=== PATIENT | female | born 1980 | race Hispanic/Latino ===

== ENCOUNTER 2017-02-24 12:17 | Emergency (ER) | payer OTHER ==
[~2017-02-24] VITALS: Ht 162.6 cm; Wt 118.2 kg
[~2017-02-24 12:17] MED LIST: OXYC1TAB24 PO
[2017-02-24 12:31] VITALS: BP 147/82; PULSE 66; RESP 18; O2SAT 98
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
--- NOTE | 2017-02-24 18:08 | DRSVH ---
PROCEDURE: X-RAY CERVICAL SPINE, 2 OR 3 VIEWS INDICATIONS: pain TECHNIQUE: 3 view(s) of the cervical spine were acquired. COMPARISON: [facility], CR, XR CERVICAL SPINE 2 OR 3VW, 11/10/2015, 13:49. FINDINGS: Bones: No fractures or dislocations to the C7-T1 level. The lateral masses of C1 appear intact on t he odontoid view. No suspicious bony lesions. There is mild reversal of normal cervical curvature. The odontoid tip is suboptimally evaluated. Soft tissues: No prevertebral soft tissue swelling. IMPRESSION: No visualized acute fracture or dislocation. However, if clinical concern and/or pain pe rsist, short interval imaging followup in 7-10 days is recommended, as occult injury cannot be defini tively excluded. Dictated by: Cheri Renner M.D. on 02/24/2017 at 18:06 Approved by: Cheri Renner M.D. on 02/24/2017 at 18:06
[2017-02-24] MEDS ORDERED: CYCL10TA9 PO (18:55)
[2017-02-24 19:10] VITALS: BP 138/78; PULSE 68; RESP 18; O2SAT 98
== END 2017-02-24 19:11 | disposition home or self-care (01) ==
LOC: SED 12:17
DX: S16.1XXA Strain of muscle, fascia and tendon at neck level, initial encounter (principal); X58.XXXA Exposure to other specified factors, initial encounter; Y93.89 Activity, other specified; Y92.9 Unspecified place or not applicable; Y99.8 Other external cause status

== ENCOUNTER 2017-03-06 21:45 | Emergency (ER) | payer OTHER ==
[~2017-03-06] VITALS: Ht 162.6 cm; Wt 118.2 kg
[~2017-03-06 21:45] MED LIST changes: +CYCL10TA9 PO
[2017-03-06 21:53] VITALS: BP 180/84; PULSE 80; RESP 18; O2SAT 100
[2017-03-06 22:21] LABS: BASOPHILS % (AUTO) 0.7 % (0-3); EOSINOPHILS % (AUTO) 2.6 % (0-5); MONOCYTES % (AUTO) 7.3 % (4-12); Mean Corpuscular Hemoglobin 30.5 pg (27.0-35.0); Mean Corpuscular Volume 88.3 fL (81-100); NEUTROPHILS % (AUTO) 59.4 % (40-74); Platelet Count 149 bil/L (150-400)
[2017-03-06 22:47] LABS: Magnesium 2.1 mg/dL (1.6-2.6)
--- NOTE | 2017-03-06 23:22 | ED.REPORT ---
HPI-Abd Pain F Under 40 Date of Service March 06, 2017 ED Provider: Andrés Demarco DO Patient is a 36 year old female with a history of ovarian cysts who presents to the ED complaining of suprapubic pain. Associated symptoms include irregular vaginal bleeding. She denies dysuria, , vaginal discharge or having any new sexual partners. The patient reports that she feels as though she has another ovarian cyst. Nursing Notes Stated Complaint: LOWER ABD PAIN Chief Complaint: Female Abdominal Pain Nursing Notes Reviewed: Yes Allergies: Coded Allergies: No Known Allergies (Unverified Allergy, Unknown, 03/06/17) Scheduled PRN Cyclobenzaprine (Cyclobenzaprine) 10 Mg Tablet 10 MG PO BID PRN PRN For Pain oxyCODONE-Acetaminophen 5-325 mg (oxyCODONE-Acetaminophen 5-325 mg) 1 Each Tablet 1-2 TAB PO Q6H PRN PRN For Pain General Time Seen by MD: 23:22 Chief Complaint Pelvic pain Hx Obtained From: Patient Arrived By: Walk-in Sudden in Onset?: Yes Symptom Duration: Since onset Location: : Pelvis: Suprapubic Associated with: Reports: Vaginal bleeding Recent Healthcare: No recent hospitalization, Recent doctor visit Similar Sx Previous: Yes Past Medical History Past Medical History Left ovarian cyst Fatty liver Past Surgical History Cholecystectomy Tonsillectomy D&C Reports: Tubal ligation Family History Noncontributory Smoking History Never Smoker Social History Alcohol Use: Denies alcohol use Other Social History: Good social support, Local resident Ambulatory Status Independent Review of Systems Respiratory: Denies: Non-productive cough, Shortness of breath GI: Reports: Abdominal pain Female: Reports: Pelvic pain, Vaginal bleeding - abnl, Denies: Dysuria, Vaginal discharge Complete sys rev & neg: except as marked. Physical Exam Initial Vital Signs Vital Signs (First) Date Time Temp Pulse Resp B/P Pulse Ox O2 Delivery O2 Flow Rate FiO2 03/06/17 21:53 36.4 80 18 180/84 100 Room Air Initial VS: Reviewed General/Constitutional: Awake, Alert Respiratory / Chest: Atraumatic, Breath sounds NL, Breath sounds = bilat, No respiratory distress Cardiovascular: Heart rate NL, Regular rhythm, Heart sounds NL Abdomen: Atraumatic, Soft Tenderness/Guarding/Rebound: Positive: Tender suprapubic Back: Atraumatic, Full range of motion Head / Eyes: Atraumatic, Normocephalic, PERRL, EOMI Skin: Atraumatic, Color NL, No rash, Warm, Dry Neurologic: Oriented X3, Speech NL, No motor deficits, No sensory deficits Upper Extremity / MS: Atraumatic, Full range of motion Psychiatric: Affect NL, Mood NL Interpretation & Diagnostics Interpretation & Diagnostics: PELVIC ULTRASOUND: Uterus and endometrium within normal limits. There was bowel gas shadowing and neither of the ovaries were visualized. No gross adnexal mass or cyst. at 0011 Lab Results Interpretation Result Diagram: 03/06/17 2213 03/06/17 2213 Test 03/06/17 22:13 03/06/17 23:20 White Blood Count 6.9th/mm3 (3.8-10.1) Red Blood Count 4.53mil/mm3 (3.90-5.20) Hemoglobin 13.8g/dL (12.0-15.6) Hematocrit 40.0% (35.0-46.0) Mean Corpuscular Volume 88.3fL (81-100) Mean Corpuscular Hemoglobin 30.5pg (27.0-35.0) Mean Corpuscular Hemoglobin Concent 34.5% (32.0-37.0) Red Cell Distribution Width 12.9% (12.3-15.4) Platelet Count 149bil/L (150-400) Neutrophils (%) (Auto) 59.4% (40-74) Lymphocytes (%) (Auto) 29.4% (14-46) Monocytes (%) (Auto) 7.3% (4-12) Eosinophils (%) (Auto) 2.6% (0-5) Basophils (%) (Auto) 0.7% (0-3) Sodium Level 139mEq/L (134-144) Potassium Level 3.8mEq/L (3.5-5.2) Chloride Level 104mEq/L (97-108) Carbon Dioxide Level 23mmol/L (18-29) Blood Urea Nitrogen 11mg/dL (6-20) Creatinine 0.60mg/dL (0.57-1.00) Estimat Glomerular Filtration Rate 164mL/min (>59) Glucose Level 84mg/dL (60-99) Calcium Level 9.1mg/dL (8.5-10.1) Magnesium Level 2.1mg/dL (1.6-2.6) Total Bilirubin 0.5mg/dL (0.0-1.2) Aspartate Amino Transf (AST/SGOT) 57U/L (0-50) Alanine Aminotransferase (ALT/SGPT) 68U/L (0-32) Alkaline Phosphatase 113U/L (25-150) Total Protein 7.1g/dL (6.4-8.4) Albumin 3.9g/dL (3.4-5.0) Lipase 25U/L (13-60) Hold Barrios Top Tube Received (Received) Urine Color Yellow (YELLOW) Urine Appearance Clear (CLEAR,HAZY) Urine pH 5.5 (5.0-8.0) Urine Specific [place] 1.030 (1.003-1.035) Urine Protein Negativemg/dL (NEG,TRACE) Urine Glucose (UA) Negativemg/dL (NEGATIVE) Urine Ketones Negativemg/dL (NEGATIVE) Urine Occult Blood Negative (NEGATIVE) Urine Nitrite Negative (NEGATIVE) Urine Bilirubin Negative (NEGATIVE) Urine Urobilinogen Normalmg/dL (NORMAL) Urine Leukocyte Esterase Negative (NEGATIVE) Urine RBC 0-2/hpf (0-2) Urine WBC 0-5/hpf (0-5) Urine Epithelial Cells Many/hpf (NONE-MOD) Urine Crystals None seen (NONE SEEN) Urine Bacteria Few/hpf (NONE-FEW) Urine Hyaline Casts None/lpf (NONE) Urine Granular Casts None seen (NONE SEEN) Urine Waxy Casts None seen (NONE SEEN) Urine Red Blood Cell Casts None seen (NONE SEEN) Urine White Blood Cell Casts None seen (NONE SEEN) Urine Mucus Present (None Seen) Urine Trichomonas None seen (NONE SEEN) Urine Yeast None (NONE SEEN) Urine Culture Reflexed Not indicated Re-Eval/Medical Decision Med Decision/Clinical Course Med Decision/Clinical Course: WBC was normal, ultrasound showed no evidence of cysts, abdomen is no longer tender. See no reason for a further CT Source of Hx: Old records Re-Evaluation/Progress : Time of Eval: 00:52 Re-Evaluation/Progress Note: Patient's abdomen is no longer tender. Discussed US results and plan for discharge. The patient understands and agrees to the plan for discharge. All questions were addressed. Counseled Regarding: Diagnosis, Lab results, Need for follow-up, When/why to return to ED Discharge & Departure Primary Impression: Pelvic pain Disposition: Home Discharge Condition All VS Reviewed: Yes Condition: Stable Patient Instructions: Pelvic Pain in Women (ED) Additional Instructions: Your ultrasound was normal. They were unable to identify your ovaries. Your urine was sent to infectious diseases to be tested. You should follow up with this and call on Friday for results. You can take 1-2 Percocet every 6 hours for pain. Do not drink alcohol or drive while taking the pain medication. Do not consume Acetaminophen while taking the medication. Follow up with your primary care physician next week. Return to the emergency department if you develop any new or worsening symptoms. Referrals: Deejay Arndt MD (PCP) Roman Attestation Portions of this note were transcribed by Mayra Dumont. I, Dr. Demarco personally performed the history, physical exam and medical decision-making; I reviewed and confirmed the accuracy of the information in the transcribed note. Signed by: Roman Stovall, 03/07/17 and 0040 copies to: Deejay Arndt MD, Todd P DO March 06, 2017 23:22 Rossi Dumont March 06, 2017 23:28
[2017-03-06] MEDS ORDERED: _oxyCODONE/APAP 5-325 mg Tablet PO PRN (23:30)
[2017-03-06] MEDS ORDERED: HYDROmorphone 1 mg/mL Inj IM ONE (23:30)
[2017-03-06 23:53] LABS: APPEARANCE,URINE CLEAR (CLEAR,HAZY); COLOR,URINE YELLOW (YELLOW); OCCULT BLOOD,URINE NEGATIVE (NEGATIVE); PH,URINE 5.5 (5.0-8.0); UROBILINOGEN,URINE NORMAL (NORMAL)
--- NOTE | 2017-03-07 08:36 | DRSVH ---
PROCEDURE: US PELVIC SONOGRAM + TRANSVAGINAL SONOGRAM INDICATIONS: pelvic pain, history of ovarian cysts. TECHNIQUE: Real-time scanning was performed of the pelvic organs, with image documentation. Additional endovagi nal scanning was necessary due to incomplete visualization of the adnexal and endometrial structures by transabdominal scanning. COMPARISON: None. FINDINGS: (orthogonal measurements) Uterus size: 9.70 cm, 4.04 cm Endometrium thickness: 10 mm Right ovary size: Not seen Left ovary size: Not seen Transabdominal scanning: Limited scanning through the kidneys shows no hydronephrosis. No pathologi c free abdominal or pelvic fluid. Endovaginal scanning: Uterus: Uterus is normal in size and appearance. Endometrium is within normal physiologic limits. Ovaries: Within normal physiologic limits. IMPRESSION: No gross adnexal mass or cyst. Otherwise, negative exam. Dictated by: Albert Camarena M.D. on 03/07/2017 at 8:23 Approved by: Albert Camarena M.D. on 03/07/2017 at 8:34
== END 2017-03-07 00:54 | disposition home or self-care (01) ==
LOC: SED 21:45
DX: R10.2 Pelvic and perineal pain (principal); N93.8 Other specified abnormal uterine and vaginal bleeding
CPT/HCPCS: 36415; 76830; 76856; 80053; 81000; 81025; 83690; 83735; 85025; 87491; 87591; 96372; 99285; J1170

== ENCOUNTER 2017-03-08 10:15 | Emergency (ER) | payer OTHER ==
[~2017-03-08] VITALS: Ht 162.6 cm; Wt 118.2 kg
[2017-03-08 10:17] VITALS: BP 151/94; PULSE 68; RESP 15; O2SAT 99
--- NOTE | 2017-03-08 10:23 | ED.REPORT ---
HPI-Abd Pain F Under 40 Date of Service March 08, 2017 ED Provider: Dr. Thomas The patient is a 36 year old female w/ a hx of ovarian cysts who presents to the ED due to lower abdominal pain for several days. She was seen at the ED 2 days ago for similar symptoms. She has not been able to sleep or eat since onset. Associated symptoms include chills, vomiting and vaginal spotting. She denies vaginal bleeding or discharge, fever, nausea, diarrhea, or constipation. Nursing Notes Stated Complaint: ABDOMINAL PAIN Chief Complaint: Female Abdominal Pain Nursing Notes Reviewed: Yes Allergies: Coded Allergies: No Known Allergies (Unverified Allergy, Unknown, 03/06/17) Scheduled PRN Cyclobenzaprine (Cyclobenzaprine) 10 Mg Tablet 10 MG PO BID PRN PRN For Pain oxyCODONE-Acetaminophen 5-325 mg (oxyCODONE-Acetaminophen 5-325 mg) 1 Each Tablet 1-2 TAB PO Q6H PRN PRN For Pain General Time Seen by MD: 10:22 Chief Complaint Abdominal pain Hx Obtained From: Patient Arrived By: Walk-in Sudden in Onset?: Yes Onset Occurred: 2 days ago Symptom Duration: Since onset Progression since Onset: Gradually worsening Location: : Abdomen lower Quality: Painful Radiation: : Does not radiate Severity: Current: Moderate Recent Healthcare: Recent doctor visit Similar Sx Previous: Yes Past Medical History Past Medical History Left ovarian cyst Fatty liver Past Surgical History Cholecystectomy Tonsillectomy D&C Reports: Tubal ligation Family History Noncontributory Smoking History Never Smoker Social History Alcohol Use: Denies alcohol use Other Social History: Good social support, Local resident Ambulatory Status Independent Review of Systems Constitutional: Reports: Chills, Denies: Fever GI: Reports: Abdominal pain, Vomiting, Denies: Constipation, Diarrhea, Nausea Female: Reports: Vaginal bleeding - abnl ("spotting"), Denies: , Vaginal discharge Complete sys rev & neg: except as marked. Physical Exam Initial Vital Signs Vital Signs (First) Date Time Temp Pulse Resp B/P Pulse Ox O2 Delivery O2 Flow Rate FiO2 03/08/17 10:17 36.9 68 15 151/94 99 Room Air Initial VS: Reviewed Head / Eyes: Atraumatic, Normocephalic, PERRL ENT: Mucous membranes moist Extremities: Vascular intact, Neuro intact, No swelling, No tenderness Skin: Warm, Dry General/Constitutional: Awake, Cooperative Respiratory / Chest: Atraumatic, Breath sounds NL, Breath sounds = bilat, No respiratory distress Cardiovascular: Heart rate NL, Regular rhythm, Heart sounds NL, No gallop Tenderness/Guarding/Rebound: Positive: Tender diffuse Back: Atraumatic, Inspection NL, Full range of motion, Painless range of motion Interpretation & Diagnostics Lab Results Interpretation Result Diagram: 03/08/17 1103 03/08/17 1103 Test 03/08/17 11:03 03/08/17 12:20 White Blood Count 5.4th/mm3 (3.8-10.1) Red Blood Count 4.39mil/mm3 (3.90-5.20) Hemoglobin 13.4g/dL (12.0-15.6) Hematocrit 39.3% (35.0-46.0) Mean Corpuscular Volume 89.5fL (81-100) Mean Corpuscular Hemoglobin 30.5pg (27.0-35.0) Mean Corpuscular Hemoglobin Concent 34.1% (32.0-37.0) Red Cell Distribution Width 13.0% (12.3-15.4) Platelet Count 129bil/L (150-400) Neutrophils (%) (Auto) 64.0% (40-74) Lymphocytes (%) (Auto) 25.6% (14-46) Monocytes (%) (Auto) 6.9% (4-12) Eosinophils (%) (Auto) 2.2% (0-5) Basophils (%) (Auto) 0.9% (0-3) Sodium Level 138mEq/L (134-144) Potassium Level 3.9mEq/L (3.5-5.2) Chloride Level 104mEq/L (97-108) Carbon Dioxide Level 22mmol/L (18-29) Blood Urea Nitrogen 10mg/dL (6-20) Creatinine 0.54mg/dL (0.57-1.00) Estimat Glomerular Filtration Rate 185mL/min (>59) Glucose Level 116mg/dL (60-99) Calcium Level 8.7mg/dL (8.5-10.1) Magnesium Level 2.1mg/dL (1.6-2.6) Total Bilirubin 0.9mg/dL (0.0-1.2) Aspartate Amino Transf (AST/SGOT) 186U/L (0-50) Alanine Aminotransferase (ALT/SGPT) 171U/L (0-32) Alkaline Phosphatase 114U/L (25-150) Total Protein 6.3g/dL (6.4-8.4) Albumin 3.7g/dL (3.4-5.0) Lipase 15U/L (13-60) Hold Barrios Top Tube Received (Received) Urine Color Yellow (YELLOW) Urine Appearance Hazy (CLEAR,HAZY) Urine pH 6.0 (5.0-8.0) Urine Specific [place] 1.015 (1.003-1.035) Urine Protein Negativemg/dL (NEG,TRACE) Urine Glucose (UA) Negativemg/dL (NEGATIVE) Urine Ketones Negativemg/dL (NEGATIVE) Urine Occult Blood Negative (NEGATIVE) Urine Nitrite Negative (NEGATIVE) Urine Bilirubin Negative (NEGATIVE) Urine Urobilinogen Normalmg/dL (NORMAL) Urine Leukocyte Esterase Negative (NEGATIVE) Urine RBC 0-2/hpf (0-2) Urine WBC 0-5/hpf (0-5) Urine Epithelial Cells Moderate/hpf (NONE-MOD) Urine Crystals Amorphous phosphates Urine Bacteria Few/hpf (NONE-FEW) Urine Hyaline Casts None/lpf (NONE) Urine Granular Casts None seen (NONE SEEN) Urine Waxy Casts None seen (NONE SEEN) Urine Red Blood Cell Casts None seen (NONE SEEN) Urine White Blood Cell Casts None seen (NONE SEEN) Urine Mucus Present (None Seen) Urine Trichomonas None seen (NONE SEEN) Urine Yeast None (NONE SEEN) Urinalysis Comment None Urine Culture Reflexed Not indicated CT Abd / Pelvis Interpretation IMPRESSION: 1. Appendix is unremarkable. No right lower quadrant inflammatory change. 2. Mild hepatomegaly with steatosis. Dictated by: Cheri Renner M.D. on 03/08/2017 at 12:40 Approved by: Cheri Renner M.D. on 03/08/2017 at 12:42 Study type: Abdominal CT no contrast Interpretation / Wet Read by: Interpret - Radiologist Re-Eval/Medical Decision Med Decision/Clinical Course Med Decision/Clinical Course: 36-year-old female history of morbid obesity, ovarian cyst presenting with right lower quadrant pain times several days. She was seen for similar the day before was discharged home with return precautions. She returns with right lower quadrant pain. She is fairly tender on initial exam. CT abdomen and pelvis no appendicitis. On pelvic she had mild right adnexal tenderness. Pelvic ultrasound was performed which was unable to visualize the appendix due to extensive bowel gas and body habitus. However her abdominal pain resolved. Her labs are stable. Given resolution of pain she is discharged home with return precautions plans to return if any recurrent right lower quadrant pain, fevers, nausea vomiting, any other new or worsening symptoms. Re-Evaluation/Progress : Time of Eval: 12:53 Patient Status: Condition unchanged Re-Evaluation/Progress Note: Pt rechecked. Pain is not improved. Plan for pelvic exam. Counseled Regarding: Diagnosis, Lab results, Need for follow-up, When/why to return to ED Discharge & Departure Primary Impression: Ovarian cyst Laterality: unspecified laterality Qualified Code: N83.209 - Unspecified ovarian cyst, unspecified side Additional Impression: Right lower quadrant pain Disposition: Home Discharge Condition All VS Reviewed: Yes Condition: Stable Additional Instructions: Thank you for entrusting us with your care today. Your CT does not show any signs of appendicitis and your lab work is normal. Take Tylenol and Ibuprofen as needed for pain. Follow up with your primary care physician as needed. Return to the Emergency Department for any new or worsening symptoms including fever, vomiting, increased pain, and abnormal vaginal bleeding. I hope you feel better soon, enjoy the sunshine! Referrals: Deejay Arndt MD (PCP) Scribe Attestation Portion of this note were transcribed by Linda Guillen. I, Dr. Thomas, personally performed the history, physical exam, and medical decision-making: I reviewed and confirmed the accuracy for the information in the transcribed note. Signed by: mamie Hoffman, 03/08/17 1300 copies to: Deejay Arndt MD, Ben M MD March 08, 2017 10:23 Linda Guillen March 08, 2017 10:50
[2017-03-08] MEDS ORDERED: 0.9% Sodium Chloride 1,000 ML IV ONE (10:48)
[2017-03-08] MEDS: Ondansetron 2 mg/mL 2 mL Inj IVPUSH PRN ×2 (11:07→14:03)
[2017-03-08 11:19] LABS: BASOPHILS % (AUTO) 0.9 % (0-3); EOSINOPHILS % (AUTO) 2.2 % (0-5); MONOCYTES % (AUTO) 6.9 % (4-12); Mean Corpuscular Hemoglobin 30.5 pg (27.0-35.0); Mean Corpuscular Volume 89.5 fL (81-100); Platelet Count 129 bil/L (150-400)
[2017-03-08 11:49] LABS: Magnesium 2.1 mg/dL (1.6-2.6)
--- NOTE | 2017-03-08 12:44 | DRSVH ---
PROCEDURE: CT ABDOMEN AND PELVIS WITH CONTRAST ([id number]) INDICATIONS: RLQ tenderness r/o appy TECHNIQUE: After the administration of intravenous contrast, 5 mm thick sections acquired from the diaphragm to the symphysis. 5 mm coronal and sagittal reformats were acquired. For radiation dose reduction, the following was used: automated exposure control, adjustment of mA and/or kV according to patient siz e. COMPARISON: None. FINDINGS: Image quality: Excellent. ABDOMEN: Lung bases: Lung bases are clear. Heart size is normal. Solid organs: Liver is mildly enlarged steatosis. The spleen is normal in size and enhancement. Gal lbladder is unremarkable. Biliary system is non dilated. Pancreas enhances normally. No adrenal no dules. Kidneys demonstrate normal size and enhancement, without hydronephrosis. Peritoneum and bowel: Bowel loops demonstrate normal wall thickness and caliber. No free fluid or a ir. The appendix is unremarkable. No right lower quadrant inflammatory change. Nodes and vessels: No retroperitoneal or mesenteric adenopathy by size criteria. Aorta and inferior vena cava are normal in size. Miscellaneous: No ventral hernias. PELVIS: Genitourinary: Bladder wall thickness is normal. Miscellaneous: No inguinal hernias or adenopathy. Bones: No suspicious bony lesions. No vertebral body compression fractures. IMPRESSION: 1. Appendix is unremarkable. No right lower quadrant inflammatory change. 2. Mild hepatomegaly with steatosis. Dictated by: Cheri Renner M.D. on 03/08/2017 at 12:40 Approved by: Cheri Renner M.D. on 03/08/2017 at 12:42
[2017-03-08 12:57] LABS: APPEARANCE,URINE HAZY (CLEAR,HAZY); COLOR,URINE YELLOW (YELLOW); OCCULT BLOOD,URINE NEGATIVE (NEGATIVE); UROBILINOGEN,URINE NORMAL (NORMAL)
[2017-03-08 14:04] VITALS: BP 123/47; PULSE 71; RESP 10; O2SAT 98
[2017-03-08 15:55] VITALS: BP 118/72; PULSE 70; RESP 15; O2SAT 100
--- NOTE | 2017-03-08 16:00 | DRSVH ---
PROCEDURE: US PELVIC SONOGRAM + TRANSVAGINAL SONOGRAM INDICATIONS: h/o cysts RLQ pain no appy on CT TECHNIQUE: Real-time scanning was performed of the pelvic organs, with image documentation. Additional endovagi nal scanning was necessary due to incomplete visualization of the adnexal and endometrial structures by transabdominal scanning. COMPARISON: None. FINDINGS: Transabdominal scanning: Limited scanning through the kidneys shows no hydronephrosis. No pathologi c free abdominal or pelvic fluid. Endovaginal scanning: Uterus: Uterus is normal in size at 10.2 x 3.8 x 6.0 cm. The endometrium measures 12.6 mm in combin ed thickness. Ovaries: Ovaries are not visualized secondary to overlying bowel gas and patient body habitus. IMPRESSION: Unremarkable exam. Nonvisualization of ovaries as above. Dictated by: Cheri Renner M.D. on 03/08/2017 at 15:57 Approved by: Cheri Renner M.D. on 03/08/2017 at 15:59
== END 2017-03-08 15:50 | disposition home or self-care (01) ==
LOC: SED 10:15
DX: R10.31 Right lower quadrant pain (principal); N83.209 Unspecified ovarian cyst, unspecified side
CPT/HCPCS: 36415; 74177; 76830; 76856; 80053; 81000; 81025; 83690; 83735; 85025; 96361; 96374; 96375; 96376; 99285; J2270; J2405; J7030; Q9967